=== PATIENT | female | born 1985 | race African-American/Black ===

== ENCOUNTER 2020-01-13 15:01 | Outpatient (CLI) | payer OTHER ==
--- NOTE | 2020-01-16 09:29 | Ultrasound Report ---
LIMITED ULTRASOUND OF RIGHT BREAST: 01/13/2020 CLINICAL: Palpable right breast lump. Comparison is made to exam dated: 01/13/2020 mammogram - [facility]. Color flow ultrasound of the right breast 1 o'clock region was performed. Ames scale images of the r eal-time examination were reviewed. There is a 0.5 cm x 0.2 cm x 0.4 cm oval cyst in the right breast at 1 o'clock middle depth 4 cm from the nipple. This oval cyst displays no posterior acoustic shadowing or enhancement. Color flow arnold ging demonstrates that there is no vascularity present. No suspicious finding to correspond to the p atient's palpable abnormality. IMPRESSION: BENIGN There is no sonographic correlate to the patient's palpable abnormality and no evidence of malignancy . Return to annual mammogram screening schedule beginning at age 40 is recommended. Findings and recommendations were conveyed to the patient in person at time of exam. The incidental 0.5 cm x 0.2 cm x 0.4 cm oval cyst in the right breast is benign. This exam was interpreted at Station ID: [id number]. Electronically Signed By: Daily medina/:01/13/2020 16:51:38 Ultrasound BI-RADS: 2 Benign BI-RADS CATEGORY: (2) - 2 Unspecified - other recall n/a LATERALITY: (B)
--- NOTE | 2020-01-16 09:29 | Mammography Report ---
BILATERAL DIGITAL DIAGNOSTIC MAMMOGRAM 3D/2D: 01/13/2020 CLINICAL: Palpable right breast lump. No prior exams were available for comparison. The tissue of both breasts is heterogeneously dense. T his may lower the sensitivity of mammography. No significant masses, calcifications, or other findings are seen in either breast. Specifically, no finding to correspond to the patient's palpable abnormality. IMPRESSION: INCOMPLETE: NEEDS ADDITIONAL IMAGING EVALUATION There is no abnormality seen in the right breast to correspond with the palpable abnormality at 11 o' clock. Ultrasound evaluation to confirm this is recommended and was performed immediately following this exa m. This exam was interpreted at Station ID: [id number]. NOTE: For mammograms, a report in lay terms will be sent to the patient. Approximately 15% of breast malignancies will not be visualized mammographically. In the management of a palpable breast mass, a negative mammogram must not discourage biopsy of a clinically suspicious lesion. Electronically Signed By: Daily medina/:01/13/2020 15:48:33 ACR BI-RADS Category 0: Incomplete 3340F PARENCHYMAL PATTERN: (D) - The breast(s) demonstrate(s) heterogeneously dense fibroglandular sheryl chan. BI-RADS CATEGORY: (0) - 0 Ultrasound [id number] Immediate follow-up LATERALITY: (B)
== END 2020-01-13 15:02 | disposition home or self-care (01) ==
LOC: DI 15:01
PROVIDERS: ATTEND Nurse Practitioner
DX: N60.01 Solitary cyst of right breast (principal)
CPT/HCPCS: 76642; 77066